=== PATIENT | male | born 1980 | race Caucasian/White ===

== ENCOUNTER 2018-04-12 13:21 | Emergency (ER) | payer BC ==
[2018-04-12 13:54] VITALS: BP 129/91
--- NOTE | 2018-04-12 14:32 | UC ---
Lower Extremity/Ankle HPI - HPI Summary HPI Summary: Pt with pain to right medial ankle. 2 days ago stood up and felt a poppig sensation. Pt with pain medial and dorsum ankle since. Pain increases with movement and standing. No paresthesia. Pt has applied ice, no analgesia. no knee pain. no fall. no other injuries. Pt has sprained this ankle previoiusly pt's medications reviewed this visit - History of Current Complaint Chief Complaint: UCLowerExtremity Stated Complaint: RT ANKLE INJURY Time Seen by Provider: 04/12/18 13:51 Hx Obtained From: Patient Onset/Duration: Sudden Onset Severity Initially: Moderate Pain Intensity: 7 - Allergies/Home Medications Allergies/Adverse Reactions: Allergies Allergy/AdvReac Type Severity Reaction Status Date / Time No Known Allergies Allergy Verified 04/12/18 13:50 Home Medications: Home Medications Ibuprofen 600 mg PO ONCE PRN 04/12/18 [History Confirmed 04/12/18] PMH/Surg Hx/FS Hx/Imm Hx Previously Healthy: Yes - Surgical History Surgical History: Yes Surgery Procedure, Year, and Place: acl repair L knee 2010 - Family History Known Family History: Positive: Other - no contributory Family History: NON CONTRIBUTORY - Social History Occupation: Employed Full-time - [employer] Lives: With Family Alcohol Use: Rare Substance Use Type: Marijuana Substance Use Comment - Amount & Last Used: Daily Smoking Status (MU): Heavy Every Day Tobacco Smoker Amount Used/How Often: 1/2ppd Review of Systems Constitutional: Negative Skin: Negative Musculoskeletal: Other: - left ankle pain All Other Systems Reviewed And Are Negative: Yes Physical Exam - Summary Physical Exam Summary: Vital Signs Reviewed: Yes A+Ox3, no distress Eyes: Conjunctiva Clear ENT: Hearing grossly normal neck: supple Respiratory: Positive: No respiratory distress, No accessory muscle use Cardiovascular: skin color reflect adequate perfusion Musculoskeletal Exam: + sle b/l + flex/ext knee, ankle _+ TTP medial, anterior margin of right ankle mild discomfort across talus. no pain tarsal, achilles, lateral Neurological: Positive: Alert, + gross sensation throughout Psychological: Positive: Normal Response To Family Skin: Positive: no rash, mild edema medial aspect no abraison,no ecchymosis Triage Information Reviewed: Yes Vital Signs: Initial Vital Signs Temp 98.4 F 04/12/18 13:51 Pulse 66 04/12/18 13:51 Resp 16 04/12/18 13:51 BP 129/91 04/12/18 13:51 Pulse Ox 97 04/12/18 13:51 Diagnostics - Radiology No standard instances Radiology Interpretation Completed By: Radiologist - Patient Name: ALTHEA SANCHEZ Medical Record#: [id number] Ordering Physician: Taisha Machuca MD Acct.#: [id number] : 1980 Age: 37 Sex: M Location: [facility] Exam Date: 04/12/18 1351 ADM Status: DEP ER Order Information: ANKLE RIGHT 3+VWS Accession Number: [id number] CPT: 64343 Indication: Right ankle injury. 3 views of the right ankle demonstrate soft tissue swelling. Ankle mortise is intact. No fracture is identified. Degenerative changes of the tibiotalar joint is noted. IMPRESSION: Degenerative changes of the tibiotalar joint without evidence of fracture. ____ <Electronically signed by Peggy Lubin MD in OV> 04/12/181452 Dictated By: Peggy Lubin MD Dictated Date/Time: 04/12/18 145 Transcribed Date/Time: 04/12/18 145 Copy to: CC: Taisha Machuca MD; No Primary Care Phys,NOPCP Imaging - [facility] [address] [address] ph ([phone]) ph ([phone]) ph ([phone]) This report is only to be considered final once signed by the Provider(s) as displayed in the "<Electronically Signed by >" field (s). Absence of a signature indicates the report is in a draft status and still needs to be finalized. In the event this document was created by someone other than the signing Provider, the individual initiating the document will be listed in the "Entered by:" or "Dictated by:" méndez. 1 of 1 Lower Extremity Course/Dx - Course Course Of Treatment: pt with pain and mild edema medial aspect right ankle s/p popping sound when standing. Pt with tenderness, no crepitus. will image. motrin/apap. mannie. splint. crutches. elevate. ice. work note. referral to [facility] - pt has ortho in [place] - will give disc - Differential Dx/Diagnosis Provider Diagnoses: right ankle sprain Discharge - Sign-Out/Discharge Documenting (check all that apply): Patient Departure - Discharge Plan Condition: Stable Disposition: HOME Patient Education Materials: Ankle Sprain (ED) Forms: *Gen. Provider Communication, *Work Release Referrals: [facility] [Provider Group] No Primary Care Phys,NOPCP [Primary Care Provider] - Additional Instructions: -wear mannie wrap and splint for comfort and support -apply ice (20 min at a time) every 2-3 hours for the next 2 days -use crutches until you can walk normally without a limp -Elevate your leg - this will help with swelling and pain - Alternate ibuprofen (advil, Motrin) 600mg and tylenol every 3 hours for pain. Take with food. Do NOT take for more than 4-5 days -Contact the sports medicine provider group or your orthopedic provider to schedule a follow-up appointment early this week. contact your doctor or return with questions or concerns - your xray has not been reviewed by a radiologist - the doctor that evaluated you today did not see a fracture (broken bone) It the radiologist see a fracture , you will receive a call from a care steam pipe fitter - Billing Disposition and Condition Condition: STABLE Disposition: Home
--- NOTE | 2018-04-12 14:56 | RAD ---
Indication: Right ankle injury. 3 views of the right ankle demonstrate soft tissue swelling. Ankle mortise is intact. No fracture is identified. Degenerative changes of the tibiotalar joint is noted. IMPRESSION: Degenerative changes of the tibiotalar joint without evidence of fracture.
== END 2018-04-12 14:47 | disposition home or self-care (01) ==
LOC: UCCORT 13:21
DX: S93.401A Sprain of unspecified ligament of right ankle, initial encounter (principal); X50.0XXA Overexertion from strenuous movement or load, initial encounter; Y93.89 Activity, other specified; Y92.9 Unspecified place or not applicable; F17.210 Nicotine dependence, cigarettes, uncomplicated
CPT/HCPCS: 99213; G0463

== ENCOUNTER 2018-06-07 15:14 | Emergency (ER) | payer BC ==
[2018-06-07 15:59] VITALS: BP 149/74
[2018-06-07] MEDS ORDERED: Acetaminophen TAB* 325 MG PO ONE (16:00)
--- NOTE | 2018-06-07 16:55 | UC ---
Respiratory Complaint HPI - HPI Summary HPI Summary: C/O cough x 6 days, fevers x 3 days. Feeling SOB with shaking chills. Nasal congestion. Headache worse with coughing. Smoking 1/2 PPD. - History of Current Complaint Chief Complaint: UCRespiratory Stated Complaint: COUGH/FEVER/CONGESTION Time Seen by Provider: 06/07/18 16:47 Hx Obtained From: Patient Onset/Duration: Sudden Onset, Lasting Days - 6, Worse Since - last 3 days Timing: Constant Severity Initially: Mild Severity Currently: Moderate Pain Intensity: 0 Character: Cough: Productive - bright green Aggravating Factors: Deep Breaths, Recumbent Position Associated Signs And Symptoms: Positive: Dyspnea, Fever, Chills, URI, Nasal Congestion - Risk Factors Pulmonary Embolism Risk Factors: Smoking Cardiac Risk Factors: Smoking - Allergies/Home Medications Allergies/Adverse Reactions: Allergies Allergy/AdvReac Type Severity Reaction Status Date / Time No Known Allergies Allergy Verified 06/07/18 15:54 Home Medications: Home Medications Dm/PE/Acetaminophen/Doxylamine [Daytime-Nighttime Cold-Flu] 2 each PO BID PRN [History Confirmed 06/07/18] PMH/Surg Hx/FS Hx/Imm Hx - Surgical History Surgical History: Yes Surgery Procedure, Year, and Place: acl repair L knee 2010 - Family History Known Family History: Positive: Other - no contributory Negative: Cardiac Disease Family History: NON CONTRIBUTORY - Social History Occupation: Employed Full-time Lives: With Family Alcohol Use: Occasionally Substance Use Type: Marijuana Substance Use Comment - Amount & Last Used: Daily Smoking Status (MU): Heavy Every Day Tobacco Smoker Amount Used/How Often: 1/2ppd Review of Systems Constitutional: Fever, Chills ENT: Sore Throat, Nasal Discharge, Sinus Congestion Respiratory: Shortness Of Breath, Cough Cardiovascular: Chest Pain Is Patient Immunocompromised?: No All Other Systems Reviewed And Are Negative: Yes Physical Exam Triage Information Reviewed: Yes Appearance: No Pain Distress, Well-Nourished, Ill-Appearing Vital Signs: Initial Vital Signs Temp 101.5 F 06/07/18 15:55 Pulse 94 06/07/18 15:55 Resp 20 06/07/18 15:55 BP 149/74 06/07/18 15:55 Pulse Ox 96 06/07/18 15:55 Vital Signs Reviewed: Yes Eyes: Positive: Conjunctiva Inflamed ENT: Positive: Pharyngeal erythema, Nasal congestion, TMs normal Neck exam: Normal Respiratory: Positive: Crackles - Left lower lobe, Wheezing - expiratory wheeze with coughing. Cardiovascular Exam: Normal Musculoskeletal Exam: Normal Neurological Exam: Normal Psychological Exam: Normal Skin Exam: Normal UC Diagnostic Evaluation - Laboratory O2 Sat by Pulse Oximetry: 96 Respiratory Course/Dx - Differential Dx/Diagnosis Provider Diagnoses: Pneumonia. Bronchospasm. Smoking Discharge - Sign-Out/Discharge Documenting (check all that apply): Patient Departure All imaging exams completed and their final reports reviewed: No Studies - Discharge Plan Condition: Stable Disposition: HOME Prescriptions: Albuterol HFA INHALER* [Ventolin HFA Inhaler*] 2 puff INH Q4H PRN #1 mdi PRN Reason: Wheezing Clarithromycin TAB* [Biaxin 500 MG TAB*] 500 mg PO BID #20 tab predniSONE TAB* [Deltasone 20 MG TAB*] 60 mg PO DAILY #18 tab Patient Education Materials: Community Acquired Pneumonia (ED), Clarithromycin (By mouth), Bronchospasm (ED), Prednisone (By mouth) Referrals: No Primary Care Phys,NOPCP [Primary Care Provider] - (3 weeks recheck pneumonia ) Additional Instructions: Smoking Cessation Tricks. 1. Cut down by 1 cigarette per day every 2-3 days. Write the number of smokes for that day on the calendar. 2. Identify triggers to smoking: after meals, on the phone, in the car, with coffee, on breaks at work, etc. 3. Formulate a plan with a behavior to replace the smoking. Fireballs in the car , doodle pad on the phone, flavored creamer for the coffee, go for a walk after a meal or on break at work. 4. For stress smokes do deep breathing relaxation. Breath deep in through the nose hold the breath in for a few seconds then breath out slowly through the mouth. - Billing Disposition and Condition Condition: STABLE Disposition: Home
== END 2018-06-07 17:10 | disposition home or self-care (01) ==
LOC: UCCORT 15:23
DX: J18.9 Pneumonia, unspecified organism (principal); J98.01 Acute bronchospasm; F17.210 Nicotine dependence, cigarettes, uncomplicated
CPT/HCPCS: 99212; A9270-GY; G0463